=== PATIENT | female | born 2000 | race Caucasian/White ===

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

== ENCOUNTER 2021-08-23 19:35 | Emergency (ER) | payer BC, OTHER ==
[~2021-08-23] VITALS: Ht 170.2 cm; Wt 100.0 kg
[~2021-08-23 19:35] MED LIST: AZIT250T PO
[2021-08-23] MEDS ORDERED: dexamethasone sod phosphate 10mg/ml inj IV STA (19:52)
[2021-08-23] MEDS ORDERED: ketorolac trometh. 30mg/ml inj. IV ONE (19:55)
[2021-08-23] MEDS ORDERED: CefTRIAXone 2gm/D5W 50ml BAG 50 ML IV ONE (19:55)
[2021-08-23] MEDS ORDERED: normal saline 1000ML IV soln IV ONE (19:55)
[2021-08-23 20:13] LABS: BASOPHILS # (AUTO) 0.1 X10'3 (0-0.2); BASOPHILS % (AUTO) 1.2 % (0-1); EOSINOPHILS % (AUTO) 0 % (0-6); HEMATOCRIT 39.9 % (35.0-45.0); HEMOGLOBIN 13.7 g/dl (12.0-16.0); LYMPHOCYTES # (AUTO) 1.5 X10'3 (1.1-4.8); LYMPHOCYTES % (AUTO) 24.7 % (21-51); MEAN CORPUSCULAR HEMOGLOBIN 28.5 PG (27.0-31.0); MEAN CORPUSCULAR HGB CONC 34.2 g/dL (33.0-36.5); MEAN CORPUSCULAR VOLUME 83.3 FL (78-98); MEAN PLATELET VOLUME 8.8 FL (7.4-10.4); MONOCYTES # (AUTO) 0.9 X10'3 (0-0.9); MONOCYTES % (AUTO) 14.5 % (2-12); NEUTROPHILS # (AUTO) 3.6 X10'3 (1.8-7.7); NEUTROPHILS % (AUTO) 59.6 % (42-75); PLATELET COUNT 182 X10'3 (140-440); RED CELL DISTRIBUTION WIDTH 13.9 % (11.5-14.5); WHITE BLOOD COUNT 6.1 X10'3 (4.5-11.0)
[2021-08-23 20:24] LABS: ALANINE AMINOTRANSFERASE 237 U/L (12-78); ALBUMIN 3.4 G/DL (3.4-5.0); ALBUMIN/GLOBULIN RATIO 0.8 (1.1-1.5); ALKALINE PHOSPHATASE 118 IU/L (46-116); ANION GAP 15 (8-16); ASPARTATE AMINO TRANSFERASE 160 U/L (10-37); BILIRUBIN,TOTAL 1.1 MG/DL (0.1-1.0); BLOOD UREA NITROGEN 9 MG/DL (7-18); BUN/CREATININE RATIO 10.2 (6.6-38.0); CALCIUM 8.6 MG/DL (8.5-10.1); CHLORIDE 98 MMOL/L (99-107); CREATININE 0.88 MG/DL (0.40-0.90); GLUCOSE 87 MG/DL (70-104); POTASSIUM 3.2 MMOL/L (3.5-5.1); SODIUM 135 MMOL/L (135-145); TOTAL CARBON DIOXIDE 22.4 MMOL/L (24-32); TOTAL PROTEIN 7.9 G/DL (6.4-8.2); eGFR 81 ML/MIN
[2021-08-23 20:38] LABS: MONOTEST NEGATIVE (Neg)
[2021-08-23] MEDS ORDERED: ALBU6.7H9 INH (20:58)
[2021-08-23] MEDS ORDERED: NAPR-56 PO (20:58)
[2021-08-23] MEDS ORDERED: ONDA4TAB12 PO (20:58)
[2021-08-23 22:02] VITALS: BP 112/51
--- NOTE | 2021-08-26 12:37 | NUR ---
Due to patients culture swab returning positive. Dr. Prajapati would like patient to be placed on Amoxicillin 500 mg 2 tab PO BID x7 days for total 14 days. Called to notify patient at listed number at which patient had not had voicemail set up yet. Called mother at which she game home phone and voicemail was also not set up. But when talking to mother patient told mother that [facility] would [facility] [address] in [place]. Called in prescription and spoke with pharmacist.
== END 2021-08-23 22:04 | disposition home or self-care (01) ==
LOC: ER 19:36
DX: U07.1 COVID-19 (principal); R11.0 Nausea; J02.9 Acute pharyngitis, unspecified; R51.9 Headache, unspecified; R50.9 Fever, unspecified; Z79.2 Long term (current) use of antibiotics
CPT/HCPCS: 36415; 71045; 80053; 85025; 86308; 87081; 87635; 93005; 96365; 96375; 99285; C9803; J0696; J1100; J1885; J7030